=== PATIENT | male | born 1965 | race Caucasian/White ===

== ENCOUNTER → 2016-10-01 | Outpatient (CLI) | payer BC ==
[~2016-10-01] MED LIST: ASPI81TA83 PO; CRES5TAB PO; INSULANT SC; MULTIVIT PO; ZEST2.5T OR; [UNRECOGNIZED DRUG - OTHER]; novolog insulin pump SC
--- NOTE | 2016-10-01 12:09 | REP ---
BILATERAL ELBOW SERIES: AP and lateral views of the right elbow are performed and demonstrate no evidence of acute fracture or dislocation. A calcific density projecting in the region of the elbow joint centrally on the AP view may represent a joint body measuring about 4 mm in diameter. There is no evidence of a joint effusion. AP and lateral views of the left elbow demonstrate no evidence of acute fracture or dislocation. Joint spaces appear unremarkable. There is no evidence of a joint effusion. IMPRESSION: Suspected calcific joint body centrally in the right elbow joint 4 mm in diameter. Signed by Krystian Amos MD 10/01/2016 02:18 P
--- NOTE | 2016-10-01 12:10 | REP ---
SINGLE VIEW RIGHT SHOULDER: Single view of the right shoulder is performed. There is no evidence of acute fracture, dislocation or intrinsic bone disease. IMPRESSION: Negative single view right shoulder. Signed by Krystian Amos MD 10/01/2016 02:18 P
--- NOTE | 2016-10-01 12:11 | REP ---
BILATERAL HANDS: AP and lateral views of bilateral hands performed. There is no evidence of acute fracture or dislocation bilaterally. I do not see significant arthritic changes. No intrinsic osseous pathology is seen. IMPRESSION: Negative exam bilateral hands. Signed by Krystian Amos MD 10/01/2016 02:18 P
== END ==
LOC: M RAD 10:32
PROVIDERS: ATTEND Family Medicine
DX: M13.0 Polyarthritis, unspecified (principal); M75.41 Impingement syndrome of right shoulder

== ENCOUNTER → 2016-10-01 | Outpatient (REF) | payer BC ==
[2016-10-01 13:40] LABS: URIC ACID 3.7 MG/DL (3.5-7.2)
[2016-10-01 13:42] LABS: FOLLICLE STIMULATING HORMONE 1.3 mIU/mL (1.4-18.1); LUTEINIZING HORMONE 2.7 mIU/mL (1.5-9.3)
== END ==
LOC: M SFHCPLAZ 09:19
PROVIDERS: ATTEND Family Medicine
DX: M13.0 Polyarthritis, unspecified (principal); E29.1 Testicular hypofunction

== ENCOUNTER → 2017-01-11 | Outpatient (REF) | payer BC | LOC: M SFHCPLAZ 08:37 | PROVIDERS: ATTEND Family Medicine | DX: E10.65 Type 1 diabetes mellitus with hyperglycemia (principal); E29.1 Testicular hypofunction ==

== ENCOUNTER → 2017-09-10 | Outpatient (REF) | payer BC ==
[2017-09-10 14:59] LABS: IRON (FE) 163 UG/DL (65-175)
[2017-09-10 14:59] LABS: FERRITIN 96 NG/ML (26-388); FREE T4 1.38 NG/DL (0.76-1.46)
[2017-09-10 15:08] LABS: CORTISOL AM 14.9 UG/DL (4.3-22.4); PROLACTIN 3.7 NG/ML (2.1-17.7)
[2017-09-12 00:06] LABS: TESTOSTERONE FREE (DIRECT) 8.8 pg/mL (7.2-24.0)
== END ==
LOC: M SFHCPLAZ 11:57
DX: E29.1 Testicular hypofunction (principal)
CPT/HCPCS: 83540

== ENCOUNTER 2018-02-26 09:32 | Day surgery (SDC) | payer BC ==
[~2018-02-26 09:32] MED LIST changes: -ASPI81TA83 PO; -CRES5TAB PO; -INSULANT SC; +LIDOCAINE 2% MDV 20 ML VIAL As Ordered; -MULTIVIT PO; +PROPOFOL 200 MG/20 ML VIAL As Ordered; -ZEST2.5T OR; -[UNRECOGNIZED DRUG - OTHER]; -novolog insulin pump SC
[2018-02-26] MEDS: NS 1,000 ML IV (09:45)
== END 2018-02-26 12:02 | disposition home or self-care (01) ==
LOC: M OPP 09:32
DX: Z12.11 Encounter for screening for malignant neoplasm of colon (principal); K64.0 First degree hemorrhoids; D12.6 Benign neoplasm of colon, unspecified; Z86.010 Personal history of colon polyps; K22.8 Other specified diseases of esophagus; K44.9 Diaphragmatic hernia without obstruction or gangrene; R12 Heartburn; I10 Essential (primary) hypertension; E78.00 Pure hypercholesterolemia, unspecified; M12.9 Arthropathy, unspecified; F32.9 Major depressive disorder, single episode, unspecified; F41.9 Anxiety disorder, unspecified; E10.9 Type 1 diabetes mellitus without complications; L40.9 Psoriasis, unspecified; Z79.899 Other long term (current) drug therapy; Z79.84 Long term (current) use of oral hypoglycemic drugs; Z79.82 Long term (current) use of aspirin; Z87.09 Personal history of other diseases of the respiratory system; Z96.41 Presence of insulin pump (external) (internal)
CPT/HCPCS: 45385

== ENCOUNTER → 2020-06-03 | Outpatient (CLI) | payer SELFPAY ==
[~2020-06-03] MED LIST changes: +ASPI81TA83 PO; +CRES5TAB PO; +ESCI20TA; +FISH5CAP PO; +INSULANT SC; -LIDOCAINE 2% MDV 20 ML VIAL As Ordered; +LISI-542; +MULTIVIT PO; -PROPOFOL 200 MG/20 ML VIAL As Ordered; +ROSU40TA4; +SILD100T; +VITA-243 PO; +VITA100067 PO; +ZEST2.5T OR; +[UNRECOGNIZED DRUG - OTHER]; +novolog insulin pump SC
== END ==
LOC: M LABSMTC 13:18
PROVIDERS: ATTEND Pediatrics
DX: Z20.828 Contact with and (suspected) exposure to other viral communicable diseases (principal)

== ENCOUNTER → 2020-06-03 | Outpatient (REF) | payer BC ==
[2020-06-03 14:31] LABS: HEMOGLOBIN A1c 8.1 %
[2020-06-03 14:40] LABS: ALBUMIN 4.2 GM/DL (3.2-5.2); ALT/SGPT 48 U/L (12-78); BILIRUBIN,TOTAL 0.7 MG/DL (0.2-1.0); BLOOD UREA NITROGEN 12 MG/DL (7-18); CALCIUM LEVEL 8.9 MG/DL (8.5-10.1); CARBON DIOXIDE LEVEL 31 MEQ/L (21-32); CHLORIDE LEVEL 101 MEQ/L (98-107); CHOLESTEROL LEVEL 136 MG/DL (<200); CREATININE FOR GFR 0.98 MG/DL (0.70-1.30); GLOMERULAR FILTRATION RATE > 60.0 (>56); GLUCOSE, FASTING 233 MG/DL (70-100); HDL CHOLESTEROL 50 MG/DL (>40); LDL CHOLESTEROL 47 MG/DL (<100); NON-HDL-C 86 MG/DL; POTASSIUM SERUM 4.3 MEQ/L (3.5-5.1); SODIUM LEVEL 139 MEQ/L (136-145); TOTAL PROTEIN 7.1 GM/DL (6.4-8.2); TRIGLYCERIDES LEVEL 196 MG/DL (<150)
[2020-06-03 14:47] LABS: CREATININE, URINE 27.8 MG/DL; MALB URINE SIEMENS < 5.0 MG/L; MAU/CREAT RATIO 17.9 MCG/MG (0.0-30.0)
== END ==
LOC: M SFHCPLAZ 11:15
PROVIDERS: ATTEND Family Medicine
DX: E10.65 Type 1 diabetes mellitus with hyperglycemia (principal); E78.2 Mixed hyperlipidemia

== ENCOUNTER → 2020-06-10 | Outpatient (CLI) | payer SELFPAY | LOC: M LABSMTC 10:58 | PROVIDERS: ATTEND Pediatrics | DX: Z20.828 Contact with and (suspected) exposure to other viral communicable diseases (principal) ==

== ENCOUNTER → 2020-06-17 | Outpatient (CLI) | payer SELFPAY | LOC: M LABSMTC 12:11 | PROVIDERS: ATTEND Pediatrics | DX: Z20.828 Contact with and (suspected) exposure to other viral communicable diseases (principal) ==

== ENCOUNTER 2020-12-20 04:30 | Observation (INO) | payer BC, SELFPAY ==
[~2020-12-20] VITALS: Ht 172.7 cm; Wt 71.6 kg
[~2020-12-20 04:30] MED LIST changes: -ESCI20TA; +ESCI20TA16; -LISI-542; +LISI-898
[2020-12-20] MEDS ORDERED: INSUHUMDS (04:39)
[2020-12-20] MEDS ORDERED: PANTOPRAZOLE 40MG VIAL (C9113 PER 1) IV ONE (04:55)
[2020-12-20] MEDS ORDERED: ONDANSETRON 4MG/2ML VIAL IV ONE (04:55)
[2020-12-20] MEDS ORDERED: NS 1,000 ML IV ONE ×2 (04:55→06:45)
[2020-12-20 05:09] LABS: HEMATOCRIT 46.1 % (42.0-52.0); MEAN CORPUSCULAR HEMOGLOBIN 29.7 pg (27.0-33.0); MEAN CORPUSCULAR HGB CONC 34.7 g/dl (32.0-36.5); MEAN CORPUSCULAR VOLUME 85.5 fl (80.0-96.0); PLATELET COUNT, AUTOMATED 214 10^3/uL (150-450); RED BLOOD COUNT 5.39 10^6/uL (4.30-6.10); WHITE BLOOD COUNT 12.8 10^3/uL (4.0-10.0)
[2020-12-20 05:19] LABS: ALT/SGPT 29 U/L (12-78); BILIRUBIN,TOTAL 1.1 MG/DL (0.2-1.0); BLOOD UREA NITROGEN 15 MG/DL (7-18); CALCIUM LEVEL 9.2 MG/DL (8.5-10.1); CARBON DIOXIDE LEVEL 31 MEQ/L (21-32); CHLORIDE LEVEL 98 MEQ/L (98-107); CREATININE FOR GFR 0.98 MG/DL (0.70-1.30); GLOMERULAR FILTRATION RATE > 60.0 (>56); GLUCOSE, FASTING 319 MG/DL (70-100); LIPASE 84 U/L (73-393); POTASSIUM SERUM 3.9 MEQ/L (3.5-5.1); SODIUM LEVEL 138 MEQ/L (136-145); TOTAL PROTEIN 7.2 GM/DL (6.4-8.2)
[2020-12-20] MEDS ORDERED: ISOVUE-370 76% 100ML VIAL As Ordered ONE (05:20)
--- NOTE | 2020-12-20 06:09 | REPVR ---
PROCEDURE INFORMATION: Exam: CT Abdomen And Pelvis With Contrast Exam date and time: 12/20/2020 5:32 AM Age: 55 years old Clinical indication: Other: Gi bleed, possible pud, perforation? TECHNIQUE: Imaging protocol: Computed tomography of the abdomen and pelvis with contrast. Radiation optimization: All CT scans at this facility use at least one of these dose optimization techniques: automated exposure control; mA and/or kV adjustment per patient size (includes targeted exams where dose is matched to clinical indication); or iterative reconstruction. Contrast material: ISOVUE 370; Contrast volume: 100 ml; Contrast route: INTRAVENOUS (IV); COMPARISON: No relevant prior studies available. FINDINGS: Mediastinal space: Distal esophageal thickening with submucosal edema, correlate. Liver: Normal. No mass. Gallbladder and bile ducts: Normal. No calcified stones. No ductal dilation. Pancreas: Normal. No ductal dilation. Spleen: Normal. No splenomegaly. Adrenal glands: Normal. No mass. Kidneys and ureters: Normal. No hydronephrosis. Stomach and bowel: Gastric distention with fluid. Excessive fluid in the small bowel with transition point in the right lower quadrant. Decompressed terminal ileum. Fluid in the proximal colon. Evidence for early, or partial small bowel obstruction. No contrast extravasated into the bowel lumen. Appendix: No evidence of appendicitis. Intraperitoneal space: Small amount of free fluid in the pelvis. Vasculature: Unremarkable. No abdominal aortic aneurysm. Lymph nodes: Unremarkable. No enlarged lymph nodes. Urinary bladder: Unremarkable as visualized. Reproductive: Unremarkable as visualized. Bones/joints: Unremarkable. No acute fracture. Soft tissues: Unremarkable. IMPRESSION: 1. Gastric distention with fluid. Excessive fluid in the small bowel with transition point in the right lower quadrant. Decompressed terminal ileum. Fluid in the proximal colon. Evidence for early, or partial small bowel obstruction. 2. Small amount of free fluid in the pelvis. 3. Distal esophageal thickening with submucosal edema, correlate. Electronically signed by: Garo Taylor On 12/20/2020 06:09:18 AM
[2020-12-20] MEDS ORDERED: PANTOPRAZOLE SODIUM 40 MG in D5W 50 ML IV SCH (06:50)
[2020-12-20] MEDS ORDERED: VITMTA PO (06:54)
[2020-12-20] MEDS ORDERED: INSUHUMDS SC (06:54)
[2020-12-20] MEDS ORDERED: LISI-898 PO (06:54)
[2020-12-20] MEDS ORDERED: ASPI81TA27 PO (06:54)
[2020-12-20] MEDS ORDERED: ROSU40TA4 PO (06:54)
[2020-12-20] MEDS ORDERED: DEXTROSE 50% 50 ML SYRINGE IV PRN (07:50)
[2020-12-20] MEDS ORDERED: PANTOPRAZOLE 40MG VIAL (C9113 PER 1) IV SCH (07:50)
[2020-12-20] MEDS ORDERED: GLUCAGON INJ 1MG VIAL SC PRN (07:50)
[2020-12-20] MEDS ORDERED: ONDANSETRON 4MG/2ML VIAL IV PRN (07:50)
[2020-12-20] MEDS ORDERED: GLUCOSE 4GM CHEW TABLET PO PRN (07:50)
[2020-12-20] MEDS ORDERED: LORazepam 2 MG TAB PO PRN (07:55)
[2020-12-20] MEDS: NS 1,000 ML IV SCH ×3 (08:16→21:39)
[2020-12-20] MEDS ORDERED: FOLIC ACID 1 MG TAB PO SCH (09:00)
[2020-12-20] MEDS ORDERED: THIAMINE 100 MG TAB PO SCH (09:00)
[2020-12-20 09:13] LABS: HEMATOCRIT 38.7 % (42.0-52.0); HEMOGLOBIN 13.4 g/dl (13.5-17.5); MEAN CORPUSCULAR HEMOGLOBIN 30.2 pg (27.0-33.0); MEAN CORPUSCULAR HGB CONC 34.6 g/dl (32.0-36.5); MEAN CORPUSCULAR VOLUME 87.2 fl (80.0-96.0); PLATELET COUNT, AUTOMATED 163 10^3/uL (150-450); RED BLOOD COUNT 4.44 10^6/uL (4.30-6.10)
--- NOTE | 2020-12-20 09:57 | CR.PDOC ---
General Surgery Consultation Date of Consultation 12/20/20 History and Physical Gen. surgery. Dr. Luna HISTORY OF PRESENT ILLNESS: The patient is a 55-year-old male who reports he began to have vomiting yesterday afternoon/evening. The patient states he had "at least 20 episodes" of vomiting. Just before he came to the emergency depart ment at 4 AM he vomited and noticed it was brown in color. He states he was in his usual state of health, reports no other recent illnesses. He has not had any further vomiting since he has been in the emergency room. Denies nausea currently. States usually he has constipation, reports his last bowel movement was approximately 5 days ago. Denies any diarrhea. Imaging in the ER indicated partial versus early SBO, general surgery consulted. He states he restarted drinking approximately 6 months ago, he states he has been having about 6 drinks per day when he drinks (but denies drinking daily). PAST MEDICAL HISTORY: Type I DM, insulin pump, follows with [facility]. Psoriasis Anxiety/depression GERD Hiatal hernia Mild FREDY, uses CPAP infrequently Chronic low back pain alcohol use. PAST SURGICAL HISTORY: Foreign object removed from right hand 1995 Colonoscopy 03/05 [place], tubular adenoma. ALLERGIES: Please see below. FAMILY HISTORY: Mother with history of duodenal cancer, CAD. Father COPD HOME MEDICATIONS: Please see below. REVIEW OF SYSTEMS: As noted in HPI otherwise 10 point review of systems unremarkable. PHYSICAL EXAMINATION: VITALS SIGNS: Please see below. GENERAL APPEARANCE: Resting on stretcher, alert and oriented, no acute distress. SKIN: Warm and moist. HEENT: Normocephalic, atraumatic. Moist mucous membranes. NECK: Supple, no thyromegaly. LUNGS: Clear to auscultation bilaterally. No wheezing appreciated. HEART: Regular rate and rhythm with no murmurs appreciated. ABDOMEN: Abdomen is soft, non-distended, mild tenderness across lower abdomen but no guarding or rebound. No grimacing with palpation. No rebound tenderness. No masses appreciated. EXTREMITIES: No edema. LABORATORY DATA: Please see below. IMAGING STUDIES: CT A/P IMPRESSION: 1. Gastric distention with fluid. Excessive fluid in the small bowel with transition point in the right lower quadrant. Decompressed terminal ileum. Fluid in the proximal colon. Evidence for early, or partial small bowel obstruction. 2. Small amount of free fluid in the pelvis. 3. Distal esophageal thickening with submucosal edema, correlate. Electronically signed by: Garo Taylor On 12/20/2020 06:09:18 AM IMPRESSION AND PLAN: SBO. Early vs Partial. The patient is reviewed as per Dr. Luna. Imaging is reviewed as per Dr. Luna. No surgical intervention planned at this time. Continue with NPO for now. Supportive care, continue with IV fluids. If the patient has recurrent vomiting, NG tube placement. Continue to monitor. Vital Signs Vital Signs Date Time Temp Pulse Resp B/P (MAP) Pulse Ox O2 Delivery O2 Flow Rate FiO2 12/20/20 08:17 115 135/81 12/20/20 07:45 97.6 20 96 12/20/20 06:15 Room Air Laboratory Data Labs 24H Laboratory Tests 2 12/20/20 04:41: Bedside Glucose (Misc Panel) 329H 12/20/20 04:48: Nucleated Red Blood Cells % (auto) 0.0, Anion Gap 9, Glomerular Filtration Rate > 60.0, Calcium Level 9.2, Total Bilirubin 1.1H, Aspartate Amino Transf (AST/SGOT) 24, Alanine Aminotransferase (ALT/SGPT) 29, Alkaline Phosphatase 78, Total Protein 7.2, Albumin 4.0, Albumin/Globulin Ratio 1.3, Lipase 84 12/20/20 08:59: Nucleated Red Blood Cells % (auto) 0.0 CBC/BMP Laboratory Tests 12/20/20 04:48 12/20/20 08:59 Home Medications Scheduled Aspirin (Aspirin EC) 81 Mg Tablet.dr, 81 MG PO QHS, (Reported) Docusate Sodium (Colace) 100 Mg Capsule, 100 MG PO BID Insulin Human Lispro (Humalog) 100 Unit/1 Ml Vial, 1 DOSE SC ASDIRECTED, (Reported) VIA INSULIN PUMP Lisinopril (Lisinopril) 5 Mg Tablet, 5 MG PO QHS, (Reported) Multivitamins (Thera M Plus Tablet) 1 Each Tablet, 1 TAB PO DAILY, (Reported) Rosuvastatin Calcium (Rosuvastatin Calcium) 40 Mg Tablet, 40 MG PO QHS, (Reported) Scheduled PRN Sennosides (Senna) 8.6 Mg Tablet, 2 TAB PO QHSP PRN for BOWEL CARE/CONSTIPATION Allergies Coded Allergies: No Known Allergies (Verified , 08/14/11) Rani Leal 4, 2021 09:52
[2020-12-20 10:11] LABS: PROTHROMBIN TIME 13.4 SECONDS (12.5-14.3)
[2020-12-20 10:12] LABS: PARTIAL THROMBOPLASTIN TIME 25.8 SECONDS (24.2-38.5)
[2020-12-20] MEDS: THIAMINE 200MG/2ML VIAL (J3411 PER 100MG) IV SCH (11:38)
[2020-12-20] MEDS: PANTOPRAZOLE 40MG VIAL (C9113 PER 1) IV SCH ×2 (11:40→20:01)
[2020-12-20] MEDS: MULTIVITAMINS/MINERALS THERAP 1 TAB PO SCH (11:40)
[2020-12-20 12:03] LABS: RSV AMPLIFICATION NEGATIVE (NEGATIVE)
[2020-12-20 14:00] VITALS: BP 120/69
[2020-12-20] MEDS ORDERED: HEPARIN SOD (PORCINE) 5000UNITS/ML 1ML VIAL/SYRINGE SQ SCH (14:25)
--- NOTE | 2020-12-20 14:36 | HPEPDOC ---
[facility] Medical History & Physical Date of Admission December 20, 2020 Date of Service: December 20, 2020 Attending Physician: Phyllis Pennington MD History and Physical CHIEF COMPLAINT: nausea/vomiting HISTORY OF PRESENT ILLNESS: Patient is a 55-year-old male PMH of diabetes mellitus type 1 with insulin pump, psoriasis, GERD, hiatal hernia, mild FREDY, alcohol abuse who presented to [facility] emergency room with the chief complaint of increased nausea or vomiting beginning last evening. The patient states he vomited at least 20 times and the last several episodes of vomiting with the color black. He denies any new medications, diet changes, sick contacts. He's had similar episodes in the past when he has had issues with his hiatal hernia as. Patient denies chest pain, diarrhea, abdominal pain, fevers, chills but admits to increased sugars of breath with the vomiting and occasional constipation. In the emergency room vital signs showed he was tachycardic 122, blood pressure 158/89, 98% on room air, respiratory rate was 2030. His last bowel movement was 5 days ago. The patient states he drinks alcohol 5 out of 7 days a week, 6 pack per night. His last drink was on Saturday. He did not show any signs or symptoms of alcohol withdrawal aside from tachycardia. CT showed questionable partial small bowel obstruction with distal esophagus thickening and submucosal edema. Surgery was consulted. They have seen in the ER and our concern for questionable partial SBO. The patient was admitted under observation status to the medicine service for further treatment of questionable small bowel obstruction. REVIEW OF SYSTEMS: Neg except mentioned above PAST MEDICAL HISTORY: Type I DM, insulin pump, follows with [facility] in [place] Psoriasis Anxiety/depression GERD Hiatal hernia Mild FREDY, uses CPAP infrequently Chronic low back pain alcohol use. PAST SURGICAL HISTORY: Foreign object removed from right hand 1995 Colonoscopy 03/05 [place], tubular adenoma. PAST SOCIAL HX: Denies smoking or illicit drug use. Admits to drinking a sixpack 5 out of 7 nights a week. He is also used to drink heavily in the past, more so than before. Last drink Saturday. Follows with [facility], switched recently to Dr. Knight- Endocrinology. GI- Dr. Kumari. Full Code. ALLERGIES: Please see below. FAMILY HISTORY: Mother with history of duodenal cancer, CAD. Father COPD ALLERGIES: Please see below. HOME MEDICATIONS: Please see below. PHYSICAL EXAMINATION: VS: HR 122, blood pressure 158/89, 98% on room air, RR 2030. CONSTITUTIONAL: No acute distress, resting in bed, AAO x 3 EYES: PERRLA, EOM intact HENT, MOUTH: Normocephalic, atraumatic, moist mucous membranes NECK: SUPPLE, no JVD, no lymphadenopathy, no carotid bruit CV: tachycardic, S1S2 normal, no murmurs/rubs/gallops RESPIRATORY: Clear to auscultation bilaterally, no rales/rhonchi/wheezes GI: BS positive in 4 quadrants, soft, nontender, nondistended, no rebound or guarding, no organomegaly : Deferred MUSCULOSKELETAL: Normal ROM. No cyanosis, clubbing, swelling, joint deformity, extremity edema INTEGUMENTARY: Intact, no rashes, no lesions, no erythema NEUROLOGIC: Cranial Nerves II-XII are intact, no focal deficits PSYCHIATRIC: Mood and affect are normal LABORATORY DATA: Please see below IMAGING: CT abd/pelvis: 1. Gastric distention with fluid. Excessive fluid in the small bowel with transition point in the right lower quadrant. Decompressed terminal ileum. Fluid in the proximal colon. Evidence for early, or partial small bowel obstruction. 2. Small amount of free fluid in the pelvis. 3. Distal esophageal thickening with submucosal edema, correlate. ASSESSMENT: 55 y/o M with PMH of diabetes mellitus type 1 with insulin pump, psoriasis, GERD, hiatal hernia, mild FREDY, alcohol abuse admitted for further treatment of PLAN: SBO vs partial SBO -No gas, BM in several days. States can go 5-6 days without bowel movement normally due to chronic constipation -CT above, hx of hiatal hernia -No n/v since arrival to hospital -Per surgery: NPO, no surgery currently and will wait to see if improves. If n/v starts again, NG tube. C/w IVFs, zofran PRN -Surgery consulted and following Type I DM, insulin pump -C/w insulin pump for now -Monitor BS closely with NPO status, FS Q6H, hypoglyemic protocol in place -Follows with [facility] in [place] Dark vomitus, r/o hematemesis likely 2/2 to vomiting -Hx of alcohol abuse also so cannot r/o other cause -For now, NPO -H/H stable, no vomiting episodes since arrival -Consent for transfusion in chart, type and screen -Daily CBC as no active bleeding -PPI IV BID, NS at 150 cc/hr Alcohol abuse/use -Drinks 6 pack 5/7 nights/week -CIWA protocol, thiamine, folic acid and ativan PRN Anxiety/depression -Stable Hiatal hernia -Follows with Dr. Kumari o/p Mild FREDY -uses CPAP infrequently Chronic low back pain -Stable GERD -PPI IV DVT px -Teds. AC contraindicated with dark vomitus/? GI bleed DISPOSITION: Admitted under observation status. Surgery consulted and following. Plan is d/c home when medically improved. Vital Signs Vital Signs Date Time Temp Pulse Resp B/P (MAP) Pulse Ox O2 Delivery O2 Flow Rate FiO2 12/20/20 11:16 105 142/75 (97) 96 12/20/20 11:00 20 12/20/20 07:45 97.6 12/20/20 06:15 Room Air Laboratory Data Labs 24H Laboratory Tests 2 12/20/20 04:41: Bedside Glucose (Misc Panel) 329H 12/20/20 04:48: Nucleated Red Blood Cells % (auto) 0.0, Anion Gap 9, Glomerular Filtration Rate > 60.0, Calcium Level 9.2, Total Bilirubin 1.1H, Aspartate Amino Transf (AST/SGOT) 24, Alanine Aminotransferase (ALT/SGPT) 29, Alkaline Phosphatase 78, Total Protein 7.2, Albumin 4.0, Albumin/Globulin Ratio 1.3, Lipase 84 12/20/20 08:59: Nucleated Red Blood Cells % (auto) 0.0, Prothrombin Time 13.4, Prothromb Time International Ratio 1.00, Activated Partial Thromboplast Time 25.8 12/20/20 11:07: Coronavirus (COVID-19)(PCR) NEGATIVE, Influenza Type A (RT-PCR) NEGATIVE, Influenza Type B (RT-PCR) NEGATIVE, Respiratory Syncytial Virus (PCR) NEGATIVE 12/20/20 12:37: Bedside Glucose (Misc Panel) 189H CBC/BMP Laboratory Tests 12/20/20 04:48 12/20/20 08:59 Home Medications Scheduled Aspirin (Aspirin EC) 81 Mg Tablet.dr 81 MG PO QHS Insulin Human Lispro (Humalog) 100 Unit/1 Ml Vial, 1 DOSE SC ASDIRECTED VIA INSULIN PUMP Lisinopril (Lisinopril) 5 Mg Tablet, 5 MG PO QHS Multivitamins (Thera M Plus Tablet) 1 Each Tablet, 1 TAB PO DAILY Rosuvastatin Calcium (Rosuvastatin Calcium) 40 Mg Tablet, 40 MG PO QHS Allergies Coded Allergies: No Known Allergies (Verified , 08/14/11) A-FIB/CHADSVASC A-FIB History Current/History of A-Fib/PAF?: No Current PO Anticoag Therapy: No Age/Risk Factor Scoring CHADSVASC: CHADSVASC Response (Comments) Value Age Risk Factor Age < 65 years old 0 Gender Risk Factor Male 0 Hx of CHF No 0 Hx of HTN No 0 Hx of Stroke/TIA/or VTE No 0 Hx of Diabetes Yes 1 Hx of Vascular Disease No 0 Total 1 Treatment Treatment ordered: NONE Other anticoagulant ordered: none Reason Anticoagulant not given: Other Other reason anticoagulant not: r/o GI bleed Phyllis Pennington MD December 20, 2020 14:36
[2020-12-20] MEDS: FOLIC ACID 1 MG in NS 50 ML IV SCH (15:18)
[2020-12-20 17:48] VITALS: BP 149/82
[2020-12-20 18:07] VITALS: BP 149/82
[2020-12-20 22:00] VITALS: BP 147/83
[2020-12-21] MEDS: NS 1,000 ML IV SCH ×2 (04:20→10:30)
[2020-12-21 06:00] VITALS: BP 119/70
[2020-12-21 06:07] LABS: HEMATOCRIT 38.5 % (42.0-52.0); MEAN CORPUSCULAR HGB CONC 33.8 g/dl (32.0-36.5); MEAN CORPUSCULAR VOLUME 88.7 fl (80.0-96.0); PLATELET COUNT, AUTOMATED 152 10^3/uL (150-450); RED BLOOD COUNT 4.34 10^6/uL (4.30-6.10); WHITE BLOOD COUNT 6.6 10^3/uL (4.0-10.0)
[2020-12-21 06:40] LABS: ALBUMIN 2.8 GM/DL (3.2-5.2); ALT/SGPT 19 U/L (12-78); BILIRUBIN,TOTAL 0.7 MG/DL (0.2-1.0); BLOOD UREA NITROGEN 6 MG/DL (7-18); CALCIUM LEVEL 7.8 MG/DL (8.5-10.1); CARBON DIOXIDE LEVEL 27 MEQ/L (21-32); CHLORIDE LEVEL 110 MEQ/L (98-107); CREATININE FOR GFR 0.66 MG/DL (0.70-1.30); GLOMERULAR FILTRATION RATE > 60.0 (>56); GLUCOSE, FASTING 115 MG/DL (70-100); POTASSIUM SERUM 3.7 MEQ/L (3.5-5.1); SODIUM LEVEL 142 MEQ/L (136-145); TOTAL PROTEIN 5.6 GM/DL (6.4-8.2)
[2020-12-21] MEDS ORDERED: SENN8.6T28 PO (08:22)
[2020-12-21] MEDS ORDERED: COLA100C5 PO (08:22)
--- NOTE | 2020-12-21 08:22 | IPNPDOC ---
Text Note Date of Service The patient was seen on 12/21/20. NOTE Gen. surgery. Dr. Luna The patient is a 55-year-old male admitted 12/20/20 with partial versus early SBO. This morning the patient states he has not had any further vomiting. He states he did feel nauseated last evening when he tried ice chips are stopped eating them. This morning he has had some ice chips and denies any recurrent nausea. He states he is passing a small amount of flatus. Had a small mucousy bowel movement last evening. None so far today. Denies abdominal pain. AFVSS GENERAL APPEARANCE:alert and oriented, no acute distress. Moist mucous membranes. LUNGS: Clear to auscultation bilaterally. No wheezing appreciated. HEART: Regular rate and rhythm with no murmurs appreciated. ABDOMEN: Abdomen is soft, non-distended, no tenderness with palpation today. Hypoactive bowel sounds. No masses appreciated. EXTREMITIES: No edema. IMPRESSION AND PLAN: SBO. Early vs Partial. The patient is reviewed as per Dr. Luna. Nothing by mouth/ice chips currently. He reports he had some nausea last evening with ice chips however is trying them again this morning and is tolerating. Supportive care, continue with IV fluids. AXR this a.m. pending. Continue to monitor, further recommendations pending review of imaging. VS,Fishbone, I+O VS, Fishbone, I+O Laboratory Tests 12/20/20 08:59 12/21/20 05:26 Vital Signs Date Time Temp Pulse Resp B/P (MAP) Pulse Ox O2 Delivery O2 Flow Rate FiO2 12/21/20 06:00 98.1 82 18 119/70 (86) 94 Room Air I&O- Last 24 Hours up to 6 AM 12/21/20 06:00 Intake Total 4795.3 ml Output Total 1000 ml Balance 3795.3 ml Rani Leal December 21, 2020 08:22
--- NOTE | 2020-12-21 08:51 | REP ---
INDICATION: ffup sbo COMPARISON: CT dated 12/20/2020 TECHNIQUE: Upright view of the chest with supine and upright views of the abdomen and pelvis. FINDINGS: Frontal upright view of the chest demonstrates no acute cardiopulmonary process or free air below the diaphragm to suspect pneumoperitoneum. Supine and upright views of the abdomen and pelvis are relatively nonspecific. No definite obstruction or free air to suggest perforation. No organomegaly. No abnormal calcifications. Skeletal structures normal for age. IMPRESSION: Relatively nonspecific examination. No definite obstruction. <Electronically signed by Laz Castaneda > 12/21/20 [id number]
[2020-12-21] MEDS: PANTOPRAZOLE 40MG VIAL (C9113 PER 1) IV SCH (09:38)
[2020-12-21] MEDS: MULTIVITAMINS/MINERALS THERAP 1 TAB PO SCH (09:38)
[2020-12-21] MEDS: THIAMINE 200MG/2ML VIAL (J3411 PER 100MG) IV SCH (09:41)
[2020-12-21] MEDS: FOLIC ACID 1 MG in NS 50 ML IV SCH (12:00)
[2020-12-21 14:00] VITALS: BP 128/66
--- NOTE | 2020-12-21 18:18 | DS.PDOC ---
Discharge Summary General Date of Admission December 20, 2020 at 07:46 Date of Discharge 12/21/20 Attending Physician: Phyllis Pennington MD Discharge Summary HISTORY OF PRESENT ILLNESS: Patient is a 55-year-old male PMH of diabetes mellitus type 1 with insulin pump, psoriasis, GERD, hiatal hernia, mild FREDY, alcohol abuse who presented to [facility] emergency room with the chief complaint of increased nausea or vomiting beginning last evening. The patient states he vomited at least 20 times and the last several episodes of vomiting with the color black. He denies any new medications, diet changes, sick contacts. He's had similar episodes in the past when he has had issues with his hiatal hernia as. Patient denies chest pain, diarrhea, abdominal pain, fevers, chills but admits to increased sugars of breath with the vomiting and occasional constipation. In the emergency room vital signs showed he was tachycardic 122, blood pressure 158/89, 98% on room air, respiratory rate was 2030. His last bowel movement was 5 days ago. The patient states he drinks alcohol 5 out of 7 days a week, 6 pack per night. His last drink was on Saturday. He did not show any signs or symptoms of alcohol withdrawal aside from tachycardia. CT showed questionable partial small bowel obstruction with distal esophagus thickening and submucosal edema. Surgery was consulted. They have seen in the ER and our concern for questionable partial SBO. The patient was admitted under observation status to the medicine service for further treatment of questionable small bowel obstruction. HOSPITAL COURSE: Surgery followed patient and believed this was likely gastritis vs partial SBO. Over the evening after admission, patient had 3 BM since the evening, much improved, no n/v. He tolerated CLD and later advanced diet well. H/H remained stable, no s/s of bleeding noted this admission. PPI was continued. DM remained stable. He received alcohol cessation counselling here and by 12/21/20 was ready for discharge. He denied abdominal pain, n/v/d, fevers, chills, sob. He will be following up with PCP and Gi after discharge. PAST MEDICAL HISTORY: Type I DM, insulin pump, follows with [facility] in [place] Psoriasis Anxiety/depression GERD Hiatal hernia Mild FREDY, uses CPAP infrequently Chronic low back pain alcohol use. PAST SURGICAL HISTORY: Foreign object removed from right hand 1995 Colonoscopy 03/05 [place], tubular adenoma. PAST SOCIAL HX: Denies smoking or illicit drug use. Admits to drinking a sixpack 5 out of 7 nights a week. He is also used to drink heavily in the past, more so than before. Last drink Saturday. Follows with [facility] [place], switched recently to Dr. Knight- Endocrinology. GI- Dr. Kumari. Full Code. ALLERGIES: Please see below. FAMILY HISTORY: Mother with history of duodenal cancer, CAD. Father COPD ALLERGIES: Please see below. DISCHARGE MEDICATIONS: Please see below. PHYSICAL EXAMINATION: VS:Please see below CONSTITUTIONAL: No acute distress, resting in bed, AAO x 3 EYES: PERRLA, EOM intact HENT, MOUTH: Normocephalic, atraumatic, moist mucous membranes NECK: SUPPLE, no JVD, no lymphadenopathy, no carotid bruit CV: tachycardic, S1S2 normal, no murmurs/rubs/gallops RESPIRATORY: Clear to auscultation bilaterally, no rales/rhonchi/wheezes GI: BS positive in 4 quadrants, soft, nontender, nondistended, no rebound or guarding, no organomegaly : Deferred MUSCULOSKELETAL: Normal ROM. No cyanosis, clubbing, swelling, joint deformity, extremity edema INTEGUMENTARY: Intact, no rashes, no lesions, no erythema NEUROLOGIC: Cranial Nerves II-XII are intact, no focal deficits PSYCHIATRIC: Mood and affect are normal LABORATORY DATA: Please see below IMAGING: CT abd/pelvis: 1. Gastric distention with fluid. Excessive fluid in the small bowel with transition point in the right lower quadrant. Decompressed terminal ileum. Fluid in the proximal colon. Evidence for early, or partial small bowel obstruction. 2. Small amount of free fluid in the pelvis. 3. Distal esophageal thickening with submucosal edema, correlate. ASSESSMENT: 55 y/o M with PMH of diabetes mellitus type 1 with insulin pump, psoriasis, GERD, hiatal hernia, mild FREDY, alcohol abuse admitted for further treatment of PLAN: Gastritis vs partial SBO- resolved -3 BM since the evening, much improved, no n/v -CT above, hx of hiatal hernia -tolerated advanced diet today -d/c home with BR and f/u with PCP Type I DM, insulin pump -C/w insulin pump -Follows with [facility] in [place] Dark vomitus likely 2/2 to vomiting -No s/s of severe GI bleed -Hx of alcohol abuse -H/H stable, no vomiting episodes since arrival -c/w with PPI, alcohol cessation discussed Alcohol abuse/use -No s/s of withdrawl -Alcohol cessation counselling given at bedside Anxiety/depression -Stable Hiatal hernia -Follows with Dr. Kumari o/p Mild FREDY -uses CPAP infrequently Chronic low back pain -Stable GERD -PPI DISPOSITION: D/c home to f/u with Gi and PCP TIME SPENT ON DISCHARGE: 35 minutes. Vital Signs/I&Os Vital Signs Date Time Temp Pulse Resp B/P (MAP) Pulse Ox O2 Delivery O2 Flow Rate FiO2 12/21/20 14:00 98.2 98 16 128/66 (86) 98 Room Air I&O- Last 24 Hours up to 6 AM 12/21/20 06:00 Intake Total 4795.3 ml Output Total 1000 ml Balance 3795.3 ml Laboratory Data Labs 24H Laboratory Tests 2 12/21/20 02:59: Bedside Glucose (Misc Panel) 103 12/21/20 05:26: Nucleated Red Blood Cells % (auto) 0.0, Anion Gap 5L, Glomerular Filtration Rate > 60.0, Calcium Level 7.8#L, Total Bilirubin 0.7, Aspartate Amino Transf (AST/SGOT) 14, Alanine Aminotransferase (ALT/SGPT) 19, Alkaline Phosphatase 55, Total Protein 5.6#L, Albumin 2.8#L, Albumin/Globulin Ratio 1.0 12/21/20 06:09: Bedside Glucose (Misc Panel) 126H 12/21/20 11:12: Bedside Glucose (Misc Panel) 206H CBC/BMP Laboratory Tests 12/21/20 05:26 FSBS Laboratory Tests Test 12/21/20 02:59 12/21/20 06:09 12/21/20 11:12 Range/Units Bedside Glucose (Misc Panel) 103 126 206 70-105 MG/DL Discharge Medications Scheduled Aspirin (Aspirin EC) 81 Mg Tablet., 81 MG PO QHS, (Reported) Docusate Sodium (Colace) 100 Mg Capsule, 100 MG PO BID Insulin Human Lispro (Humalog) 100 Unit/1 Ml Vial, 1 DOSE SC ASDIRECTED, (Reported) VIA INSULIN PUMP Lisinopril (Lisinopril) 5 Mg Tablet, 5 MG PO QHS, (Reported) Multivitamins (Thera M Plus Tablet) 1 Each Tablet, 1 TAB PO DAILY, (Reported) Pantoprazole Sodium (Protonix) 40 Mg Tablet.dr, 40 MG PO DAILY Rosuvastatin Calcium (Rosuvastatin Calcium) 40 Mg Tablet, 40 MG PO QHS, (Reported) Scheduled PRN Sennosides (Senna) 8.6 Mg Tablet, 2 TAB PO QHSP PRN for BOWEL CARE/CONSTIPATION Allergies Coded Allergies: No Known Allergies (Verified , 08/14/11) Phyllis Pennington MD December 21, 2020 18:18
[2020-12-21] MEDS ORDERED: PROT1TAB2 PO (18:19)
== END 2020-12-21 14:50 | disposition home or self-care (01) ==
LOC: M ED 04:30 → M ED INP 07:46 → ENRESERV 17:26 → M MSPAV 17:49
PROVIDERS: ADMIT Internal Medicine; ATTEND Internal Medicine
DX: K29.70 Gastritis, unspecified, without bleeding (principal); R11.2 Nausea with vomiting, unspecified; E10.9 Type 1 diabetes mellitus without complications; Z96.41 Presence of insulin pump (external) (internal); Z79.4 Long term (current) use of insulin; L40.9 Psoriasis, unspecified; K44.9 Diaphragmatic hernia without obstruction or gangrene; G47.33 Obstructive sleep apnea (adult) (pediatric); F10.10 Alcohol abuse, uncomplicated; F41.9 Anxiety disorder, unspecified; F32.9 Major depressive disorder, single episode, unspecified; M54.5 Low back pain; Z79.82 Long term (current) use of aspirin; Z79.899 Other long term (current) drug therapy; Z88.8 Allergy status to other drugs, medicaments and biological substances
CPT/HCPCS: 36415; 74021; 74177; 80053; 83690; 85027; 85610; 85730; 86850; 86900; 86901; 87631; 96361; 96365; 96375; 96376; 99285; C9113; J2405; J3411; Q9967

== ENCOUNTER → 2021-04-03 | Outpatient (CLI) | payer BC ==
[~2021-04-03] MED LIST changes: +ASPI81TA27 PO; +COLA100C5 PO; +CRES10TA PO; +INSUHUMDS; +INSUHUMDS SC; +LISI-898 PO; +PROT1TAB2 PO; +ROSU40TA4 PO; +SENN8.6T28 PO; +VITMTA PO
== END ==
LOC: M LABSMTC 09:26
PROVIDERS: ATTEND Anesthesiology
DX: Z01.812 Encounter for preprocedural laboratory examination (principal)

== ENCOUNTER 2021-04-07 06:39 | Day surgery (SDC) | payer BC ==
[~2021-04-07] VITALS: Ht 170.2 cm; Wt 66.7 kg
[~2021-04-07 06:39] MED LIST changes: +NS 1,000 ML IV ONE
[2021-04-07] MEDS ORDERED: propofoL 500 MG/50 ML VIAL As Ordered ONE (07:34)
[2021-04-07] MEDS ORDERED: fentaNYL 100 MCG/2 ML INJECTION (J3010) As Ordered ONE (07:34)
[2021-04-07] MEDS ORDERED: LIDOCAINE 2% 100MG/5ML SDV (FOR ANES.) As Ordered ONE (07:34)
--- NOTE | 2021-04-07 08:02 | ROOR ---
Patient Name: Rogers Kyle Procedure Date: 04/07/2021 7:30 AM Date of : 1965 Age: 56 Room: [facility] Gender: Male Note Status: Finalized Procedure: Upper Endoscopy + Biopsies Indications: Heartburn, Exclusion of Brewer's esophagus Providers: Vu Kumari MD Referring MD: Jie Bhandari MD Requesting Provider: Medicines: Monitored Anesthesia Care Complications: No immediate complications. Procedure: Pre-Anesthesia Assessment: - The heart rate, respiratory rate, oxygen saturations, blood pressure, adequacy of pulmonary ventilation, and response to care were monitored throughout the procedure. The Endoscope was introduced through the mouth, and advanced to the second part of duodenum. The upper GI endoscopy was accomplished without difficulty. The patient tolerated the procedure well. Findings: The Z-line was irregular and was found 40 cm from the incisors. Multiple biopsies were obtained with cold forceps for evaluation to rule out Brewer's Esophagus randomly at the gastroesophageal junction. A small hiatal hernia was present. Localized moderate inflammation characterized by congestion (edema) and erosions was found on the greater curvature of the stomach. Biopsies were taken with a cold forceps for Helicobacter pylori testing. The exam of the duodenum was otherwise normal. Impression: - Z-line irregular, 40 cm from the incisors. - Small hiatal hernia. - Mucosal changes suspicious for gastritis. Biopsied. - Multiple biopsies were obtained at the gastroesophageal junction. - The examination was otherwise normal. Recommendation: - Patient has a contact number available for emergencies. The signs and symptoms of potential delayed complications were discussed with the patient. Return to normal activities tomorrow. Written discharge instructions were provided to the patient. - High fiber diet. - Discharge patient to home. - Follow an antireflux regimen. - Continue present medications. - Await pathology results. - Telephone GI clinic for pathology results in 1 week. - The findings and recommendations were discussed with the patient's family. Procedure Code(s): --- Professional --- 26606, Esophagogastroduodenoscopy, flexible, transoral; with biopsy, single or multiple Diagnosis Code(s): --- Professional --- K22.8, Other specified diseases of esophagus K44.9, Diaphragmatic hernia without obstruction or gangrene K31.89, Other diseases of stomach and duodenum R12, Heartburn CPT copyright 2019 [employer]. All rights reserved. The codes documented in this report are preliminary and upon mitten stitcher review may be revised to meet current compliance requirements. Vu Kumari MD Vu Kumari MD 04/07/2021 8:02:13 AM Electronically signed by Vu Kumari MD Number of Addenda: 0 Note Initiated On: 04/07/2021 7:30 AM Estimated Blood Loss: Estimated blood loss: none.
--- NOTE | 2021-04-07 08:06 | ROOR ---
Patient Name: Rogers Kyle Procedure Date: 04/07/2021 7:31 AM Date of : 1965 Age: 56 Room: [facility] Gender: Male Note Status: Finalized Procedure: Total Colonoscopy to Cecum + ileoscopy Indications: High risk colon cancer surveillance: Personal history of colonic polyps Providers: Vu Kumari MD Referring MD: Jie Bhandari MD Requesting Provider: Medicines: Monitored Anesthesia Care Complications: No immediate complications. Procedure: Pre-Anesthesia Assessment: - The heart rate, respiratory rate, oxygen saturations, blood pressure, adequacy of pulmonary ventilation, and response to care were monitored throughout the procedure. The Colonoscope was introduced through the anus and advanced to the terminal ileum. The colonoscopy was performed without difficulty. The patient tolerated the procedure well. The quality of the bowel preparation was excellent. Findings: The perianal and digital rectal examinations were normal. Non-bleeding internal hemorrhoids were found during retroflexion. The hemorrhoids were small and Grade I (internal hemorrhoids that do not prolapse). No other significant abnormalities were identified in a careful examination of the remainder of the colon. The terminal ileum appeared normal. The exam was otherwise without abnormality. Impression: - Non-bleeding internal hemorrhoids. - The examined portion of the ileum was normal. - The examination was otherwise normal. - No specimens collected. - The exam was otherwise normal to the cecum. Recommendation: - Patient has a contact number available for emergencies. The signs and symptoms of potential delayed complications were discussed with the patient. Return to normal activities tomorrow. Written discharge instructions were provided to the patient. - High fiber diet. - Discharge patient to home. - Continue present medications. - Repeat colonoscopy in 5 years for surveillance. - Return to referring physician. - The findings and recommendations were discussed with the patient's family. Procedure Code(s): --- Professional --- 11078, Colonoscopy, flexible; diagnostic, including collection of specimen(s) by brushing or washing, when performed (separate procedure) Diagnosis Code(s): --- Professional --- Z86.010, Personal history of colonic polyps K64.0, First degree hemorrhoids CPT copyright 2019 [employer]. All rights reserved. The codes documented in this report are preliminary and upon biology professor review may be revised to meet current compliance requirements. Vu Kumari MD Vu Kumari MD 04/07/2021 8:05:22 AM Electronically signed by Vu Kumari MD Number of Addenda: 0 Note Initiated On: 04/07/2021 7:31 AM Estimated Blood Loss: Estimated blood loss: none.
[2021-04-07 08:25] VITALS: BP 142/89
== END 2021-04-07 08:42 | disposition home or self-care (01) ==
LOC: M OPP 06:39
PROVIDERS: ATTEND Internal Medicine Gastroenterology
DX: Z12.11 Encounter for screening for malignant neoplasm of colon (principal); Z86.010 Personal history of colon polyps; Z80.0 Family history of malignant neoplasm of digestive organs; K22.8 Other specified diseases of esophagus; K44.9 Diaphragmatic hernia without obstruction or gangrene; K31.89 Other diseases of stomach and duodenum; R12 Heartburn; R93.3 Abnormal findings on diagnostic imaging of other parts of digestive tract; Z79.4 Long term (current) use of insulin; Z79.899 Other long term (current) drug therapy; Z96.41 Presence of insulin pump (external) (internal)
CPT/HCPCS: 43239; 45378; 88305; J3010

== ENCOUNTER → 2021-09-15 | Outpatient (CLI) | payer BC ==
[~2021-09-15] MED LIST changes: -LISI-898; -LISI-898 PO; +LISI5TAB11; +LISI5TAB11 PO; -NS 1,000 ML IV ONE
[2021-09-15 13:19] LABS: HEMATOCRIT 47.2 % (42.0-52.0); HEMOGLOBIN 16.3 g/dl (13.5-17.5); MEAN CORPUSCULAR HEMOGLOBIN 29.5 pg (27.0-33.0); MEAN CORPUSCULAR HGB CONC 34.5 g/dl (32.0-36.5); MEAN CORPUSCULAR VOLUME 85.5 fl (80.0-96.0); PLATELET COUNT, AUTOMATED 209 10^3/uL (150-450); RED BLOOD COUNT 5.52 10^6/uL (4.30-6.10); WHITE BLOOD COUNT 6.8 10^3/uL (4.0-10.0)
[2021-09-15 13:56] LABS: CREATININE, URINE 41.7 MG/DL; MALB URINE SIEMENS < 5.0 MG/L; MAU/CREAT RATIO 11.9 MCG/MG (0.0-30.0)
[2021-09-15 14:09] LABS: ALBUMIN 4.1 GM/DL (3.2-5.2); ALT/SGPT 38 U/L (12-78); BILIRUBIN,TOTAL 0.9 MG/DL (0.2-1.0); BLOOD UREA NITROGEN 9 MG/DL (7-18); CALCIUM LEVEL 9.5 MG/DL (8.5-10.1); CARBON DIOXIDE LEVEL 28 MEQ/L (21-32); CHLORIDE LEVEL 102 MEQ/L (98-107); CHOLESTEROL LEVEL 153 MG/DL (<200); CHOLESTEROL RISK RATIO 2.886 (<5); GLOMERULAR FILTRATION RATE > 60.0 (>56); GLUCOSE, FASTING 189 MG/DL (70-100); HDL CHOLESTEROL 53 MG/DL (>40); LDL CHOLESTEROL 77 MG/DL (<100); NON-HDL-C 100 MG/DL; POTASSIUM SERUM 3.7 MEQ/L (3.5-5.1); SODIUM LEVEL 137 MEQ/L (136-145); TOTAL PROTEIN 7.8 GM/DL (6.4-8.2); TRIGLYCERIDES LEVEL 117 MG/DL (<150)
== END ==
LOC: M LAB 12:46
PROVIDERS: ATTEND Internal Medicine Endocrinology, Diabetes & Metabolism
DX: E10.65 Type 1 diabetes mellitus with hyperglycemia (principal)

== ENCOUNTER → 2022-10-26 | Outpatient (CLI) | payer BC ==
[2022-10-26 12:32] LABS: HEMATOCRIT 45.5 % (42.0-52.0); HEMOGLOBIN 15.6 g/dl (13.5-17.5); MEAN CORPUSCULAR HEMOGLOBIN 29.9 pg (27.0-33.0); MEAN CORPUSCULAR HGB CONC 34.3 g/dl (32.0-36.5); MEAN CORPUSCULAR VOLUME 87.3 fl (80.0-96.0); PLATELET COUNT, AUTOMATED 205 10^3/uL (150-450); RED BLOOD COUNT 5.21 10^6/uL (4.30-6.10); WHITE BLOOD COUNT 5.9 10^3/uL (4.0-10.0)
[2022-10-26 12:56] LABS: CREATININE, URINE 20.6 MG/DL; MALB URINE SIEMENS < 3.0 MG/L; MAU/CREAT RATIO 14.5 MCG/MG (0.0-30.0)
[2022-10-26 12:57] LABS: ALBUMIN 4.3 G/DL (3.2-5.2); ALKALINE PHOSPHATASE 59 U/L (46-116); ALT/SGPT 35 U/L (7.0-40); AST/SGOT 24 U/L (<34); BILIRUBIN,TOTAL 0.9 MG/DL (0.3-1.2); BLOOD UREA NITROGEN 8 MG/DL (9-23); CARBON DIOXIDE LEVEL 31 MMOL/L (20-31); CHLORIDE LEVEL 100 MMOL/L (98-107); CHOLESTEROL LEVEL 142 MG/DL (<200); CREATININE FOR GFR 0.75 MG/DL (0.70-1.30); GLOMERULAR FILTRATION RATE > 60.0 (>56); GLUCOSE, FASTING 150 MG/DL (60-100); HDL CHOLESTEROL 47.2 MG/DL (>40); NON-HDL-C 94.8 MG/DL; SODIUM LEVEL 138 MMOL/L (136-145); TOTAL PROTEIN 7.2 G/DL (5.7-8.2); TRIGLYCERIDES LEVEL 109 MG/DL (<150)
== END ==
LOC: M WUC 09:32
PROVIDERS: ATTEND Internal Medicine Endocrinology, Diabetes & Metabolism
DX: E10.65 Type 1 diabetes mellitus with hyperglycemia (principal)

== ENCOUNTER → 2024-03-16 | Outpatient (CLI) | payer BC ==
[~2024-03-16] MED LIST changes: +OMEP-173 PO; -ROSU40TA4; -ROSU40TA4 PO; +ROSU40TA63; +ROSU40TA63 PO
[2024-03-16 17:57] LABS: HEMATOCRIT 43.9 % (42.0-52.0); HEMOGLOBIN 15.2 g/dl (13.5-17.5); MEAN CORPUSCULAR HEMOGLOBIN 30.8 pg (27.0-33.0); MEAN CORPUSCULAR HGB CONC 34.6 g/dl (32.0-36.5); PLATELET COUNT, AUTOMATED 186 10^3/uL (150-450); RED BLOOD COUNT 4.93 10^6/uL (4.30-6.10); WHITE BLOOD COUNT 9.2 10^3/uL (4.0-10.0)
[2024-03-16 18:33] LABS: CREATININE, URINE 37.1 MG/DL; MALB URINE SIEMENS < 3.0 MG/L
[2024-03-16 18:37] LABS: ALBUMIN 3.8 G/DL (3.2-5.2); ALKALINE PHOSPHATASE 73 U/L (46-116); ALT/SGPT 27 U/L (7.0-40); AST/SGOT 22 U/L (<34); BILIRUBIN,TOTAL 0.8 MG/DL (0.3-1.2); BLOOD UREA NITROGEN 12 MG/DL (9-23); CALCIUM LEVEL 8.7 MG/DL (8.5-10.1); CARBON DIOXIDE LEVEL 28 MMOL/L (20-31); CHLORIDE LEVEL 102 MMOL/L (98-107); CHOLESTEROL LEVEL 199 MG/DL (<200); CHOLESTEROL RISK RATIO 4.27 (<5); CREATININE FOR GFR 0.86 MG/DL (0.70-1.30); GLOMERULAR FILTRATION RATE > 60.0 (>56); GLUCOSE, FASTING 194 MG/DL (60-100); HDL CHOLESTEROL 46.5 MG/DL (>40); NON-HDL-C 152.5 MG/DL; POTASSIUM SERUM 3.7 MMOL/L (3.5-5.1); SODIUM LEVEL 135 MMOL/L (136-145); TOTAL PROTEIN 6.7 G/DL (5.7-8.2); TRIGLYCERIDES LEVEL 469 MG/DL (<150)
== END ==
LOC: M PLALAB 14:57
PROVIDERS: ATTEND Internal Medicine Endocrinology, Diabetes & Metabolism
DX: E10.65 Type 1 diabetes mellitus with hyperglycemia (principal)

== ENCOUNTER → 2024-12-15 | Outpatient (CLI) | payer BC ==
[~2024-12-15] MED LIST changes: -ROSU40TA63; -ROSU40TA63 PO; +ROSU40TA81; +ROSU40TA81 PO
[2024-12-15 10:58] LABS: ALKALINE PHOSPHATASE 75 U/L (40-129); ALT/SGPT 39 U/L (7.0-40); AST/SGOT 29 U/L (<34); BILIRUBIN,TOTAL 0.9 MG/DL (0.3-1.2); BLOOD UREA NITROGEN 13 MG/DL (9-23); CARBON DIOXIDE LEVEL 28 MMOL/L (20-31); CHLORIDE LEVEL 102 MMOL/L (98-107); CHOLESTEROL LEVEL 182 MG/DL (<200); CHOLESTEROL RISK RATIO 4.01 (<5); CREATININE FOR GFR 0.77 MG/DL (0.70-1.30); GLOMERULAR FILTRATION RATE > 90.0 (>56); GLUCOSE, FASTING 185 MG/DL (60-100); HDL CHOLESTEROL 45.3 MG/DL (>40); LDL CHOLESTEROL 84.7 MG/DL (<100); NON-HDL-C 136.7 MG/DL; POTASSIUM SERUM 4.5 MMOL/L (3.5-5.1); SODIUM LEVEL 140 MMOL/L (136-145); TOTAL PROTEIN 7.4 G/DL (5.7-8.2); TRIGLYCERIDES LEVEL 260 MG/DL (<150)
== END ==
LOC: M PLALAB 08:21
PROVIDERS: ATTEND Internal Medicine Endocrinology, Diabetes & Metabolism
DX: E10.65 Type 1 diabetes mellitus with hyperglycemia (principal)